=== PATIENT | male | born 1955 | race Caucasian/White ===

== ENCOUNTER 2018-10-30 22:07 | Emergency (ER) | payer BC ==
--- NOTE | 2018-10-30 22:56 | EDM.PDOC ---
ED HPI GENERAL MEDICAL PROBLEM - General Stated Complaint: GROIN PAIN Time Seen by Provider: 10/30/18 22:07 Source of Information: Reports: Patient, Family History Limitations: Reports: Other (poor historian) - History of Present Illness INITIAL COMMENTS - FREE TEXT/NARRATIVE: 63 y.o.w.m came with his family because of pain at his right groin for > 1 year. He has left swollen scrotum for about one year. The pain at his right groin may have stared at the same time. Pt denied trauma. He did not see a doctor for september years. Pain is worse in supine position, better in upright position. No F/C no Dysuria, no N/V/D no other acute med issues. BP 156/99 RR 16 Pulse ox 100% on RA temp 36.3 Pulse 98 Onset Date: 10/30/17 Onset Time: 08:00 Duration: Constant, Intermittent Location: Reports: Other (right groin) Quality: Reports: Burning, Dull, Stabbing, Throbbing Severity: Moderate Improves with: Reports: Medication, Rest Worsens with: Reports: Rest (in supine position) Context: Reports: Other Associated Symptoms: Reports: No Other Symptoms - Related Data Allergies Allergy/AdvReac Type Severity Reaction Status Date / Time No Known Allergies Allergy Verified 10/30/18 23:24 Home Meds: Home Meds NK [No Known Home Meds] 10/30/18 [History] ED ROS GENERAL - Review of Systems Review Of Systems: See Below Constitutional: Reports: No Symptoms HEENT: Reports: No Symptoms Respiratory: Reports: No Symptoms Cardiovascular: Reports: No Symptoms Endocrine: Reports: No Symptoms GI/Abdominal: Reports: No Symptoms : Reports: Pain (righ groin) Musculoskeletal: Reports: Other (right groin) Skin: Reports: No Symptoms Neurological: Reports: No Symptoms Psychiatric: Reports: No Symptoms Hematologic/Lymphatic: Reports: No Symptoms Immunologic: Reports: No Symptoms ED EXAM, RENAL/ - Physical Exam Exam: See Below Exam Limited By: Other (poor historian) General Appearance: Alert, Mild Distress, Moderate Distress, Thin Eye Exam: Bilateral Eye: Normal Inspection Ears: Normal External Exam, Normal Canal Nose: Normal Inspection, Normal Mucosa Throat/Mouth: Normal Inspection, Normal Lips, Normal Voice, No Airway Compromise , Other (poor historian) Head: Atraumatic, Normocephalic Neck: Normal Inspection, Supple, Non-Tender, Full Range of Motion Respiratory/Chest: No Respiratory Distress, Lungs Clear, Normal Breath Sounds Cardiovascular: Normal Peripheral Pulses, Regular Rate, Rhythm, No Edema GI/Abdominal: Normal Bowel Sounds, Tender (right groin) (Male) Exam: Hernia (inguinal ) Rectal (Males) Exam: Deferred Back Exam: Normal Inspection, Full Range of Motion Extremities: Normal Inspection, Normal Range of Motion Neurological: Alert, Oriented, CN II-XII Intact, Normal Cognition, Normal Gait Psychiatric: Normal Affect, Normal Mood Skin Exam: Warm, Dry, Intact, Normal Color, No Rash Lymphatic: No Adenopathy Course - Vital Signs Text/Narrative:: 63 y.o.w.m came with his family because of pain at his right groin for > 1 year. He has left swollen scrotum for about one year. The pain at his right groin may have stared at the same time. Pt denied trauma. He did not see a doctor for may years. Pain is worse in supine position, better in upright position. No F/C no Dysuria, no N/V/D no other acute med issues. BP 156/99 RR 16 Pulse ox 100% on RA temp 36.3 Pulse 98 PE: WNWD W male with chronic right groin pain Imaging: US of scrotum: Hydrocele left scrotum. Right scrotum may be beneath his right inguinal ligament.Official report is pending Labs: CBC nl BMP Nl except Na 131 Cl 85 UA: Yon for UTI Impression: Right Groin pain for > 1 year, Hyponatremia Tx: Motrin, ICE Reexam: Improved Plan: D/C with instructions Last Recorded V/S: Last Vital Signs Temp 36.5 C 10/31/18 00:35 Pulse 85 10/31/18 00:35 Resp 18 10/31/18 00:35 BP 156/92 H 10/31/18 00:35 Pulse Ox 100 10/31/18 00:35 - Orders/Labs/Meds Orders: Active Orders 24 hr Category Date Time Status Notify Provider Consults [RC] ASDIRECTED Care 10/31/18 01:12 Active Consult to Physician [CONS] Urgent Cons 10/31/18 01:08 Ordered Scrotum and Contents [US] Stat Exams 10/30/18 22:51 Taken Labs: Laboratory Tests 10/30/18 10/30/18 10/30/18 Range/Units 22:35 23:05 23:05 WBC 8.4 (4.5-12.0) X10-3/uL RBC 4.85 (4.30-5.75) x10(6)uL Hgb 14.5 (13.5-17.8) g/dL Hct 41.9 (30.0-51.3) % MCV 86.4 (80-96) fL MCH 29.9 (27.7-33.6) pg MCHC 34.6 (32.2-35.4) g/dL RDW 13.0 (11.5-15.5) % Plt Count 329 (125-369) X10(3)uL MPV 9.9 (7.4-10.4) fL Neut % (Auto) 69.4 (46-82) % Lymph % (Auto) 18.1 (13-37) % [place] % (Auto) 11.3 (4-12) % Eos % (Auto) 1 (1.0-5.0) % Baso % (Auto) 0 (0-2) % Neut # (Auto) 5.8 (1.6-8.3) # Lymph # (Auto) 1.5 (0.6-5.0) # [place] # (Auto) 1.0 (0.0-1.3) # Eos # (Auto) 0.1 (0.0-0.8) # Baso # (Auto) 0.0 (0.0-0.2) # PT 10.4 (8.7-11.1) INR 1.07 (0.89-1.13) Sodium (135-145) mmol/L Potassium (3.5-5.3) mmol/L Chloride (100-110) mmol/L Carbon Dioxide (21-32) mmol/L BUN (7-18) mg/dL Creatinine (0.70-1.30) mg/dL Est Cr Clr Drug Dosing Estimated GFR (MDRD) (>60) BUN/Creatinine Ratio (9-20) Glucose (80-116) mg/dL Calcium (8.6-10.2) mg/dL Urine Color Yellow (YELLOW) Urine Appearance Clear (CLEAR) Urine pH 5.0 (5.0-6.5) Ur Specific [place] 1.010 (1.010-1.025) Urine Protein Negative (NEGATIVE) mg/dL Urine Glucose (UA) Normal (NORMAL) mg/dL Urine Ketones Negative (NEGATIVE) mg/dL Urine Occult Blood Negative (NEGATIVE) Urine Nitrite Negative (NEGATIVE) Urine Bilirubin Negative (NEGATIVE) Urine Urobilinogen 4 H (NEGATIVE) mg/dL Ur Leukocyte Esterase Negative (NEGATIVE) Urine RBC 0-5 (0-5) Urine WBC 0-5 (0-5) Ur Squamous Epith Cells Rare (NS,R,O) Urine Bacteria Few H (NS) Ethyl Alcohol (<0.03) % 10/30/18 10/30/18 Range/Units 23:05 23:05 WBC (4.5-12.0) X10-3/uL RBC (4.30-5.75) x10(6)uL Hgb (13.5-17.8) g/dL Hct (30.0-51.3) % MCV (80-96) fL MCH (27.7-33.6) pg MCHC (32.2-35.4) g/dL RDW (11.5-15.5) % Plt Count (125-369) X10(3)uL MPV (7.4-10.4) fL Neut % (Auto) (46-82) % Lymph % (Auto) (13-37) % [place] % (Auto) (4-12) % Eos % (Auto) (1.0-5.0) % Baso % (Auto) (0-2) % Neut # (Auto) (1.6-8.3) # Lymph # (Auto) (0.6-5.0) # [place] # (Auto) (0.0-1.3) # Eos # (Auto) (0.0-0.8) # Baso # (Auto) (0.0-0.2) # PT (8.7-11.1) INR (0.89-1.13) Sodium 131 L (135-145) mmol/L Potassium 3.8 (3.5-5.3) mmol/L Chloride 95 L (100-110) mmol/L Carbon Dioxide 29 (21-32) mmol/L BUN 8 (7-18) mg/dL Creatinine 0.7 (0.70-1.30) mg/dL Est Cr Clr Drug Dosing TNP Estimated GFR (MDRD) > 60 (>60) BUN/Creatinine Ratio 11.4 (9-20) Glucose 114 (80-116) mg/dL Calcium 8.9 (8.6-10.2) mg/dL Urine Color (YELLOW) Urine Appearance (CLEAR) Urine pH (5.0-6.5) Ur Specific [place] (1.010-1.025) Urine Protein (NEGATIVE) mg/dL Urine Glucose (UA) (NORMAL) mg/dL Urine Ketones (NEGATIVE) mg/dL Urine Occult Blood (NEGATIVE) Urine Nitrite (NEGATIVE) Urine Bilirubin (NEGATIVE) Urine Urobilinogen (NEGATIVE) mg/dL Ur Leukocyte Esterase (NEGATIVE) Urine RBC (0-5) Urine WBC (0-5) Ur Squamous Epith Cells (NS,R,O) Urine Bacteria (NS) Ethyl Alcohol < 0.03 (<0.03) % Meds: Medications Discontinued Medications Generic Name Dose Route Start Last Admin Trade Name Freq PRN Reason Stop Dose Admin Ibuprofen 600 mg 10/31/18 00:50 10/31/18 01:00 Motrin PO 10/31/18 00:51 600 mg ONETIME ONE Administration Departure - Departure Time of Disposition: 00:51 Disposition: Home, Self-Care 01 Condition: Good Clinical Impression: Groin pain, chronic, right, Hydrocele in adult - Discharge Information Referrals: PCP,None [Primary Care Provider] - Franklin Kiran MD [Physician] - Forms: ED Department Discharge Additional Instructions: Please apply ice to the affected area, please take motrin for pain , please f/u with Dr. Kiran in am, please come back if your symptoms gte worse acutely Care Plan Goals: Contact Dr. Kiran (surgeon) at [facility] in [place] at [phone]. - My Orders Last 24 Hours: My Active Orders 10/30/18 22:51 Scrotum and Contents [US] Stat 10/31/18 01:08 Consult to Physician [CONS] Urgent 10/31/18 01:12 Notify Provider Consults [RC] ASDIRECTED - Assessment/Plan Last 24 Hours: My Active Orders 10/30/18 22:51 Scrotum and Contents [US] Stat 10/31/18 01:08 Consult to Physician [CONS] Urgent 10/31/18 01:12 Notify Provider Consults [RC] ASDIRECTED
[2018-10-31] MEDS ORDERED: Ibuprofen 600 MG Tab PO ONE (00:50)
--- NOTE | 2018-10-31 11:49 | US ---
INDICATION: Swelling left scrotum, right scrotal pain. ULTRASOUND SCROTUM AND CONTENTS: Multiple ultrasonic images were obtained 10/30 and revealed the right testicle to lie in the right inguinal canal. It measured 2.9 x 1.5 x 2.8 cm without evidence of a definite mass lesion. Blood flow was noted. The left testicle appeared normal, measuring 2.9 x 2.8 x 3.9 cm. There was, however, noted a large hydrocele on the left, measuring approximately 7.9 x 3.9 x 5.8 cm. There is some echogenic material floating within the hydrocele, which may be on the basis of previous infection or injury. Normal blood flow to the testicle was suggested. IMPRESSION: 1. Right testicle in the inguinal canal on the right. 2. Large hydrocele left scrotum. [facility]
== END 2018-10-31 01:05 | disposition home or self-care (01) ==
LOC: FB.ED 22:07
DX: N43.3 Hydrocele, unspecified (principal); E87.1 Hypo-osmolality and hyponatremia
CPT/HCPCS: 36415; 76870; 80048; 81001; 85025; 85610; 99283; A9270; G0480